=== PATIENT | female | born 1935 | race Two or more races ===

== ENCOUNTER 2018-06-14 17:11 | Emergency (ER) | payer OTHER ==
[2018-06-14 17:29] VITALS: BP 123/67; PULSE 82; TEMP 97; BMI 21.4
--- NOTE | 2018-06-14 17:40 | PDOC ---
History of Present Illness - General Chief Complaint: Lightheaded Stated Complaint: HEADACHE,DIZZINESS, BLURRY VISION Time Seen by Provider: 06/14/18 17:28 History Source: Patient - History of Present Illness Initial Comments: 06/14/18 17:53 Patient is an 83 year old female with a PMH of HTN, NIDDM,HLD and cataracts who presents to our ED c/o 1 week h/o chest pain and headache. Chest pain is 10/10 , diffuse, constant, not related to movement or breathing and does not radiate anywhere. Headache is global without visual or mental status changes, relieved with PO Motrin. Patient also notes blurry vision which is chronic. Daughter @ bedside notes patient is scheduled for cataract surgery. Previous evaluation by cardiology, however no known stress testing. No known family cardiac history. Allergy: Anti-histamines Surgical: denies Social: denies toxic habits PMD: Dr. Michelet Phelps As per EMR, patient last evaluated in our ED in 04/2014 for chest pain, lung nodule on CXR/CT scan noted to be sequelae of prior granulamatous disease. Past History - Past Medical History Allergies/Adverse Reactions: Allergies Allergy/AdvReac Type Severity Reaction Status Date / Time Antihistamines - Alkylamine Allergy Verified 06/14/18 17:29 Home Medications: Ambulatory Orders Amlodipine Besylate [Norvasc -] 5 mg PO DAILY 04/20/14 Aspirin [ASA -] 81 mg PO DAILY 04/20/14 Alendronate Sodium [Binosto] 70 mg PO DAILY 06/14/18 Glipizide [Glipizide ER] 5 mg PO DAILY 06/14/18 Losartan Potassium 100 mg PO DAILY 06/14/18 Simvastatin [Zocor -] 20 mg PO HS 06/14/18 COPD: No Diabetes: Yes HTN: Yes Hypercholesterolemia: Yes - Suicide/Smoking/Psychosocial Hx Smoking History: Former smoker Have you smoked in the past 12 months: No If you are a former smoker, when did you quit?: 15 YEARS AGO Information on smoking cessation initiated: No Hx Alcohol Use: No Drug/Substance Use Hx: No Substance Use Type: None Hx Substance Use Treatment: No Review of Systems - Review of Systems Constitutional: No: Chills, Fever HEENTM: Yes: Blurred Vision. No: Double Vision Respiratory: Yes: Cough, Shortness of Breath Cardiac (ROS): Yes: Chest Pain, Lightheadedness. No: Palpitations, Syncope ABD/GI: No: Constipated, Diarrhea, Nausea, Vomiting : No: Burning, Dysuria *Physical Exam - Vital Signs Last Vital Signs Temp Pulse Resp BP Pulse Ox 97 F L 82 18 123/67 98 06/14/18 17:26 06/14/18 17:26 06/14/18 17:26 06/14/18 17:26 06/14/18 17:26 - Physical Exam General Appearance: Yes: Nourished, Appropriately Dressed HEENT: positive: Normal Voice, Hearing Grossly Normal, Other (Snellen: B/L 20/30 ) Neck: positive: Trachea midline, Supple Respiratory/Chest: positive: Lungs Clear, Normal Breath Sounds. negative: Labored Respiration, Rapid RR, Crackles, Wheezing Cardiovascular: positive: S1, S2 Gastrointestinal/Abdominal: positive: Normal Bowel Sounds, Soft. negative: Distended, Guarding, Rebound, Tenderness Musculoskeletal: negative: CVA Tenderness (R), CVA Tenderness (L) Extremity: positive: Normal Capillary Refill, Normal Inspection Heart Score/ECG Review - History History: Slightly suspicious - Electrocardiogram EKG: Normal - Age Age: >/= 65 - Risk Factors Risk Factors Heart Score: Yes Hx Hypercholesterolemia, Yes Hx Hypertension, Yes Hx Diabetes Based on the list above the patient has:: >/=3 risk factors or Hx atherosclerotic disease - ECG Intrepretation Rhythm: Regular Rhythm - Allen Allen: Normal - ST and T Early Repolarization: No Non Specific ST-T Wave changes: No - ECG Impressions Normal ECG: Yes ED Treatment Course - LABORATORY CBC & Chemistry Diagram: 06/14/18 18:15 06/14/18 18:15 Medical Decision Making - Medical Decision Making 06/14/18 18:22 83 year old female with chest pain and headache. VS unremarkable. Frontal diagnosis: r/o ACS, chostochondritis, less likely PNA, bronchospasm, very low clinical suspicion for aortic dissection, CVA (no focal neurologic deficits on PE) Will obtain CBC, CMP, Troponin x2, EKG, CXR. Reassess. 06/14/18 18:45 Fingerstick BS 164 ECG non-ischemic as documented in ECG section of EMR. C/w previous ECG. 06/14/18 18:59 CXR shows possible L calcified nodule c/w previous CXR - as per EMR, previous w/ u in 04/2014. Troponin (-) x1 Repeat Troponin @ 3 hour casper. Likely disposition home. Patient signed out to Dr. Perla (Resident) and Dr. Elam (Attending). *DC/Admit/Observation/Transfer Diagnosis at time of Disposition: Chest pain - Discharge Dispostion Disposition: HOME - Referrals Referrals: Michelet Phelps MD [Non Staff, Medical] - - Patient Instructions - Post Discharge Activity
[2018-06-14] MEDS ORDERED: SODIUM CHLORIDE 0.9% 500 ML INFUS.BAG IV ONE (18:08)
--- NOTE | 2018-06-14 18:09 | PDOC ---
Attending Attestation - HPI HPI: 06/14/18 18:45 The patient is a 83 year old female, with a significant past medical history of NIDDM, hypertension hyperlipidemia, who presents to the emergency department with one week complaint of constant, non radiating chest pain, and lightheadedness. The patient denies shortness of breath, headache. The patient denies fever, chills, nausea, vomit, diarrhea and constipation. The patient denies dysuria, frequency, urgency and hematuria. Allergies: NKDA - Medical Decision Making 06/14/18 18:45 Documentation prepared by Marguerite Apple, acting as medical office receptionist for Jayshree Elam MD <Marguerite Apple - Last Filed: 06/14/18 18:45> - Resident Resident Name: Elizabeth Huynh - ED Attending Attestation I have performed the following: I have examined & evaluated the patient, The case was reviewed & discussed with the resident, I agree w/resident's findings & plan, Exceptions are as noted - HPI HPI: 06/14/18 18:08 83 yo female p/w a week of lightheadeness and constant nonradiating chest pain . PMH of NIDDM 06/14/18 18:09 - Physicial Exam PE: 06/14/18 18:10 wnwd 83 yo female with constant chest pain and lightheadedness,she states she has blurry vision head ncat eyes doris eomi(vision acuity L 20/30 R 20/40, no diplopia neck supple lungs cta b/l cvs [id number] abd nontender ext moving all extremities skin warma nd dry neuro alert and conversant - Medical Decision Making 06/14/18 18:13 good visual acuity stable VS, no fever,normotensive ekg is nsr, no ischemia 06/14/18 23:00 both troponins are negative pt states she had a ct scan head on May 19 this month and it was negative , she refuses another imp atypical chest pain vertigo 06/14/18 23:09 pt states she had had a h/o vertigo and has taken meclizine in the past. Today she did not take any meclizine prior to arrival <Jayshree Elam - Last Filed: 06/14/18 23:11>
[2018-06-14 18:26] LABS: BASO % 0.6 % (0-2.0); HEMATOCRIT 43.2 % (32.4-45.2); HEMOGLOBIN 14.9 GM/dL (10.7-15.3); LYMPH % 46.1 % (8-40); MCH 30.2 pg (25.7-33.7); MCHC 34.5 g/dl (32.0-36.0); MEAN CELL VOLUME 87.5 fl (80-96); MEAN PLT VOLUME 8.5 fl (7.5-11.1); MONO % 8.2 % (3.8-10.2); NEUT % 42.1 % (42.8-82.8); PLATELET COUNT 261 K/MM3 (134-434); RBC 4.94 M/mm3 (3.60-5.2); RDW 14.2 % (11.6-15.6); WHITE BLOOD COUNT 8.5 K/mm3 (4.0-10.0)
[2018-06-14 18:56] LABS: ALBUMIN 3.9 g/dl (3.4-5.0); ALK PHOS 70 U/L (45-117); ANION GAP 12 MMOL/L (8-16); BILIRUBIN,TOTAL 0.4 mg/dL (0.2-1); BLOOD UREA NITROGEN 15 mg/dL (7-18); CALCIUM 9.7 mg/dL (8.5-10.1); CHLORIDE 102 mmol/L (98-107); CO2 25 mmol/L (21-32); GLUCOSE,RANDOM 154 mg/dL (74-106); N-TERMINAL BNP 11.9 pg/ml (5-450); SGPT/ALT 29 U/L (13-61); SODIUM 139 mmol/L (136-145); TOT PROT 7.9 g/dl (6.4-8.2)
[2018-06-14 18:57] LABS: MAGNESIUM 1.7 mg/dL (1.8-2.4); POTASSIUM 4.6 mmol/L (3.5-5.1); SGOT/AST 32 U/L (15-37)
--- NOTE | 2018-06-14 19:22 | PDOC ---
*Physical Exam - Vital Signs Last Vital Signs Temp Pulse Resp BP Pulse Ox 97 F L 82 18 123/67 98 06/14/18 17:26 06/14/18 17:26 06/14/18 17:26 06/14/18 17:26 06/14/18 17:26 - Physical Exam Comments: 06/14/18 19:58 GENERAL: Awake, alert, and fully oriented, in no acute distress HEAD: No signs of trauma, normocephalic, atraumatic EYES: PERRLA, EOMI, sclera anicteric, conjunctiva clear ENT: Hearing grossly normal, nares patent, oropharynx clear without exudates. Moist mucosa NECK: Normal ROM, supple, no lymphadenopathy, JVD, or masses LUNGS: No distress, speaks full sentences, clear to auscultation bilaterally HEART: Regular rate and rhythm, normal S1 and S2, no murmurs, rubs or gallops, peripheral pulses normal and equal bilaterally. EXTREMITIES : Normal inspection, Normal range of motion, no edema. No clubbing or cyanosis. SKIN: Warm, Dry, normal turgor, no rashes or lesions noted ED Treatment Course - LABORATORY CBC & Chemistry Diagram: 06/14/18 18:15 06/14/18 18:15 - ADDITIONAL ORDERS Additional order review: Laboratory Results 06/14/18 06/14/18 18:15 18:05 Sodium 139 Potassium 4.6 Chloride 102 Carbon Dioxide 25 Anion Gap 12 BUN 15 Creatinine 1.0 Creat Clearance w eGFR 53.08 POC Glucometer 164.53978 Random Glucose 154 H Calcium 9.7 Magnesium 1.7 L Total Bilirubin 0.4 AST 32 ALT 29 Alkaline Phosphatase 70 Creatine Kinase 130 Troponin I < 0.02 B-Natriuretic Peptide 11.9 Total Protein 7.9 Albumin 3.9 06/14/18 06/14/18 18:15 18:05 RBC 4.94 MCV 87.5 MCHC 34.5 RDW 14.2 MPV 8.5 Neutrophils % 42.1 L Lymphocytes % 46.1 H D Monocytes % 8.2 Eosinophils % 3.0 D Basophils % 0.6 POC Glucometer 164.68170 - Medications Given in the ED: ED Medications Discontinued Medications Generic Name Dose Route Start Last Admin Trade Name Freq PRN Reason Stop Dose Admin Sodium Chloride 500 ml 06/14/18 18:08 06/14/18 18:17 Normal Saline - IV 06/14/18 18:09 500 ml ONCE ONE Administration Medical Decision Making - Medical Decision Making 06/14/18 19:56 Received sign out from Dr. Huynh. 83 yo F with h/o ALCANTARA's, HTN, NIDDM, HLD, cataracts who p/w 1 week h/o diffuse chest pain. No other asx. complaints. Denies SOB, cough, PND, orthopnea, leg pain/swelling, wheezing, N/V, lightheadedness. VSS, AF. ACS/ND r/o. PNA r/o. Low suspicion AAA, Ao dissection.EKG with NSR, absent CLIFTON, STD, or Q waves. Normal interval duration and axis. CXR with left calcified nodule as seen on previous CXR. Initial CBC,CMP, Trop: Neg. Repeat trop. If trop neg stable for d/ c. ED Course: 06/14/18 22:13 Repeat trop neg Patient stable for d/c with return precautions. Advised to f/u with PMD. 06/14/18 22:51 Patient refused CTH. Stable for d/c. CTH 05/19: Unremarkable *DC/Admit/Observation/Transfer Diagnosis at time of Disposition: Chest pain Qualifiers: Chest pain type: unspecified Qualified Code(s): R07.9 - Chest pain, unspecified - Discharge Dispostion Disposition: HOME - Referrals Referrals: Michelet Phelps MD [Non Staff, Medical] - Sarabjit Ling MD [Staff Physician] - - Patient Instructions Printed Discharge Instructions: DI for Atypical Chest Pain Additional Instructions: Please return to the emergency department with any new or worsening symptoms or concerns. Please follow up with your primary care physician within 72 hours. Please follow up with cardiology within one week. - Post Discharge Activity - Attestations Physician Attestion: 06/14/18 20:05 I attest to the information provided in this note.
[2018-06-14] MEDS ORDERED: ACETAMINOPHEN 1000 MG/100 ML VIAL (NON FORMULARY) IVPB ONE (19:23)
[2018-06-14] MEDS ORDERED: ACETAMINOPHEN INJECTION 100 ML IVPB ONE (19:42)
[2018-06-14] MEDS ORDERED: MECLIZINE HCL 25 MG TABLET (FP) PO ONE (22:18)
[2018-06-14] MEDS ORDERED: MECLIZINE HCL 25 MG TABLET (FP) ONE (22:19)
--- NOTE | 2018-06-16 10:47 | EKG ---
Test Reason : Blood Pressure : / mmHG Vent. Rate : 079 BPM Atrial Rate : 079 BPM P-R Int : 178 ms QRS Dur : 068 ms QT Int : 370 ms P-R-T Axes : 074 -13 074 degrees QTc Int : 424 ms NORMAL SINUS RHYTHM POSSIBLE INFERIOR INFARCT (CITED ON OR BEFORE 20-APR-2014) ABNORMAL ECG Confirmed by Rich Huang MD ([id number]) on 06/16/2018 10:47:16 AM Referred By: Confirmed By:Rich Huang MD
== END 2018-06-14 23:10 | disposition home or self-care (01) ==
LOC: JER 17:11
PROC: 3E033NZ Introduction of Analgesics, Hypnotics, Sedatives into Peripheral Vein, Percutaneous Approach (ICD-10-PCS; principal; 2018-06-14)
DX: R07.9 Chest pain, unspecified (principal); E78.5 Hyperlipidemia, unspecified; E11.9 Type 2 diabetes mellitus without complications; Z79.84 Long term (current) use of oral hypoglycemic drugs; H26.9 Unspecified cataract
CPT/HCPCS: 36415; 71045-TC-FY; 80053; 82550; 82962; 83735; 83880; 84484; 85025; 93005; 93010; 96374; 99283-25; J0131

== ENCOUNTER 2020-03-08 16:28 | Observation (INO) | payer OTHER ==
[2020-03-08 16:47] VITALS: BMI 23.6
[2020-03-08 17:18] LABS: BASO % 0.5 % (0-2.0); EOS % 0.3 % (0-4.5); HEMATOCRIT 49.2 % (32.4-45.2); HEMOGLOBIN 16.5 GM/dL (10.7-15.3); LYMPH % 13.5 % (8-40); MCH 30.5 pg (25.7-33.7); MCHC 33.5 g/dl (32.0-36.0); MEAN PLT VOLUME 8.5 fl (7.5-11.1); MONO % 6.3 % (3.8-10.2); NEUT % 79.4 % (42.8-82.8); PLATELET COUNT 294 K/MM3 (134-434); RBC 5.41 M/mm3 (3.60-5.2); RDW 15.1 % (11.6-15.6); WHITE BLOOD COUNT 16.8 K/mm3 (4.0-10.0)
[2020-03-08] MEDS ORDERED: SODIUM CHLORIDE 500 ML IV STA (17:36)
--- NOTE | 2020-03-08 17:43 | PDOC ---
Documentation entered by Lyric Reich SCRIBE, acting as scribe for Octavia Roman MD. Octavia Roman MD: This documentation has been prepared by the Benny christensen Nirvannie, SCRIBE, under my direction and personally reviewed by me in its entirety. I confirm that the documentation accurately reflects all work, treatment, procedures, and medical decision making performed by me. Attending Attestation - Resident Resident Name: RuRennyjenn - ED Attending Attestation I have performed the following: I have examined & evaluated the patient, The case was reviewed & discussed with the resident, I agree w/resident's findings & plan, Exceptions are as noted - HPI HPI: 03/08/20 18:00 84 yo F with h/o htn hld here with c/o chest pain. states she has been having intermitent chest pain for weeks. sometimes gets associated nausea. also describes palpitations, and racing heart beats. does have sob. gets at rest and with exertion. no current leg swelling. did just lose her daughter to covid few months ago, and under much stress recently. no h/o prior cardiac workup per patient. - Physicial Exam PE: 03/08/20 18:02 Awake alert no acute distress lungs are clear bilaterally heart is regular murmurs rubs or gallops abdomen soft nontender extremities are warm well perfused no noted peripheral edema no calf tenderness 2+ DP PT pulses bilaterally patient is awake alert and oriented x3 - Medical Decision Making 03/08/20 18:03 84-year-old female history of hyperlipidemia hypertension here today complaining of chest pain does have a recent stress of her daughter's . Differential includes angina infection such as COVID or other pneumonia DC plan EKG chest x- ray troponin due to patient's risk factors we will likely admit to telemetry for monitoring will obtain COVID test to rule out due to her recent exposure and due to procedures for admission 03/08/20 21:05 pt labs normal ekg unremarkable. except q waves III and AVF. left axis. rate 84 bpm. given asa. will admit due to high heart score, high risk factors htn hld and dm. Heart Score/ECG Review #1 General ECG Interpretation: Sinus Rhythm, Normal Rate (84), Normal Intervals Compared to previous ECG there are: Previous ECG unavail (Q wave III, AVF. left axis. rate 84 bpm) Discharge - Discharge Information Problems reviewed: Yes Clinical Impression/Diagnosis: Chest pain Condition: Stable - Follow up/Referral - Patient Discharge Instructions - Post Discharge Activity
[2020-03-08 17:52] LABS: ALBUMIN 4.1 g/dl (3.4-5.0); ALK PHOS 59 U/L (45-117); ANION GAP 9 MMOL/L (8-16); BILIRUBIN,TOTAL 0.5 mg/dL (0.2-1); BLOOD UREA NITROGEN 20.6 mg/dL (7-18); CALCIUM 9.5 mg/dL (8.5-10.1); CHLORIDE 101 mmol/L (98-107); CO2 27 mmol/L (21-32); CREATININE 0.8 mg/dL (0.55-1.3); GLUCOSE,RANDOM 102 mg/dL (74-106); MAGNESIUM 2.1 mg/dL (1.8-2.4); POTASSIUM 4.3 mmol/L (3.5-5.1); SGOT/AST 26 U/L (15-37); SGPT/ALT 29 U/L (13-61); SODIUM 137 mmol/L (136-145); TOT PROT 7.8 g/dl (6.4-8.2)
[2020-03-08] MEDS ORDERED: ASPIRIN 81 MG CHEWABLE TABLETS PO ONE (18:04)
--- NOTE | 2020-03-08 18:11 | PDOC ---
History of Present Illness - General Chief Complaint: Chest Pain Stated Complaint: CP Time Seen by Provider: 03/08/20 16:57 - History of Present Illness Initial Comments: 03/08/20 17:40 HPI: 84 y/o F with hx of NIDDM, HTN, HLD presenting with chest pain x2 weeks of intermittent chest pain. Pain was random and had no pattern. Chest pain was left or right sided without radiation and 8/10; described as a pressure in her chest. The pain is unchanged in nature however today she also reported LH and nausea with emesis and a sensation of feeling flushed. She denies previous similar symptoms. She denies fever, ALCANTARA, SOB, palpitations, abd pain, dysuria, sycnope, LOC. PMHx: as noted above ROS: as noted SHx: Denies tobacco use; no alcohol use; no rec drugs Allergies: NKDA ROS: GENERAL/CONSTITUTIONAL: No fever or chills. No weakness. HEAD, EYES, EARS, NOSE AND THROAT: No change in vision. No ear pain or discharge. No sore throat. CARDIOVASCULAR: +chest pain; no shortness of breath RESPIRATORY: No cough, wheezing, or hemoptysis. GASTROINTESTINAL: +nausea, vomiting; no diarrhea or constipation. GENITOURINARY: No dysuria, frequency, or change in urination. MUSCULOSKELETAL: No joint or muscle swelling or pain. No neck or back pain. SKIN: No rash NEUROLOGIC: No headache, vertigo, loss of consciousness, or change in streng th/sensation. ENDOCRINE: No increased thirst. No abnormal weight change HEMATOLOGIC/LYMPHATIC: No anemia, easy bleeding, or history of blood clots. ALLERGIC/IMMUNOLOGIC: No hives or skin allergy. PE: GENERAL: Awake, alert, and fully oriented, no acute distress HEAD: No signs of trauma, normocephalic, atraumatic EYES: EOMI, sclera anicteric, conjunctiva clear ENT: Auricles normal inspection, hearing grossly normal, nares patent, oropharynx clear without exudates. Moist mucosa NECK: Normal ROM, no lymphadenopathy LUNGS: No increased work of breathing, symmetrical chest rise, clear to auscult ation bilaterally, no wheezes, crackles or rhonchi HEART: Regular rate, regular rhythm, normal S1 and S2, no murmur, peripheral pulses 2+ and equal bilaterally. ABDOMEN: Soft, nondistended, nontender. No guarding, no rebound. No masses. No CVAT MUSCULOSKELETAL: FROM NEUROLOGICAL: Cranial nerves II through XII grossly intact. Normal speech, no focal sensorimotor deficits SKIN: Warm, Dry, normal turgor, no rashes or lesions noted Past History - Medical History Allergies/Adverse Reactions: Allergies Allergy/AdvReac Type Severity Reaction Status Date / Time Antihistamines - Alkylamine Allergy Verified 03/08/20 16:36 Home Medications: Ambulatory Orders Amlodipine Besylate [Norvasc -] 5 mg PO DAILY 04/20/14 Aspirin [ASA -] 81 mg PO DAILY 04/20/14 Alendronate Sodium [Binosto] 70 mg PO DAILY 06/14/18 Glipizide [Glipizide ER] 5 mg PO DAILY 06/14/18 Losartan Potassium 100 mg PO DAILY 06/14/18 Simvastatin [Zocor -] 20 mg PO HS 06/14/18 COPD: No Diabetes: Yes HTN: Yes Hypercholesterolemia: Yes - Psycho-Social/Smoking History Smoking History: Never smoked Have you smoked in the past 12 months: No If you are a former smoker, when did you quit?: 15 YEARS AGO Information on smoking cessation initiated: No - Substance Abuse Hx (Audit-C & DAST Scrn) How often the patient has a drink containing alcohol: Never Score: In Men: 4 or > Positive; In Women: 3 or > Positive: 0 Screen Result (Pos requires Nsg. Audit-10AR): Negative In the last yr the pt used illegal drug/Rx for NonMed reason: No Score: Yes response is considered Positive: 0 Screen Result (Positive result requires Nsg. DAST-10): Negative *Physical Exam - Vital Signs Last Vital Signs Temp Pulse Resp BP Pulse Ox 98.3 F 90 20 145/80 97 03/08/20 16:43 03/08/20 16:43 03/08/20 16:43 03/08/20 16:43 03/08/20 16:43 Heart Score/ECG Review - History History: Moderately suspicious - Electrocardiogram EKG: Non specific repolarization disturbance - Age Age: >/= 65 - Risk Factors Risk Factors Heart Score: Yes Hx Hypercholesterolemia, Yes Hx Hypertension, Yes Hx Diabetes Based on the list above the patient has:: >/=3 risk factors or Hx atheros clerotic disease - Troponin Troponin: </= normal limit - Score Heart Score - Total: 6 - ECG Intrepretation Rhythm: Regular Rhythm ED Treatment Course - LABORATORY CBC & Chemistry Diagram: 03/08/20 17:00 03/08/20 17:00 - ADDITIONAL ORDERS Additional order review: 03/08/20 17:00 RBC 5.41 H MCV 91.0 MCHC 33.5 RDW 15.1 MPV 8.5 Neutrophils % 79.4 D Lymphocytes % 13.5 D Monocytes % 6.3 Eosinophils % 0.3 D Basophils % 0.5 Medical Decision Making - Medical Decision Making 03/08/20 18:50 84 y/o F with hx of NIDDM, HTN, HLD presenting with chest pain x2 weeks of intermittent chest pain now with LH, nausea and emesis. VSS, AF. PE unremarkable -cbc, cmp, card prof, coags, mg, ekg, cxr 03/08/20 18:54 labs wnl ekg nsr with no romi/d, q waved in leads 3 and avf HEART score 6 will admit for acs workup of note, granddaughter states she was supposed to see cabin service agent 2 weeks ago but wasnt able to get in for insruance issues will admit to tele for further workup 03/08/20 18:56 signed out to night team to followup admission Discharge - Discharge Information Problems reviewed: Yes Clinical Impression/Diagnosis: Chest pain Condition: Stable - Admission Yes - Follow up/Referral - Patient Discharge Instructions - Post Discharge Activity
[2020-03-08 18:19] LABS: INR 1.02 (0.83-1.09)
[2020-03-08 18:21] LABS: ACTIVATED PTT 27.8 SECONDS (25.2-36.5)
[2020-03-08] MEDS ORDERED: ASPIRIN COATED 81 MG TABLET.EC ONE (18:27)
--- NOTE | 2020-03-08 19:44 | PN ---
Teaching Attending Note Name of Resident: Noemi Franklin ATTENDING PHYSICIAN STATEMENT I saw and evaluated the patient. I reviewed the resident's note and discussed the case with the resident. I agree with the resident's findings and plan as documented. SUBJECTIVE: Patient 84 year old woman with a PMH of NIDDM, HTN and HLD presenting with two weeks of intermittent chest pain. Pain was random and had no pattern. Chest pain was left or right sided without radiation and 8/10; described as a pressure in her chest. The pain is unchanged in nature however today she also reported lightheadedness and nausea with emesis and a sensation of feeling flushed. Describes palpitations and racing heart beats. Also has SOB at rest and with exertion. Has been under stress lately following loss of her daughter to COVID- 19 infection. She denies previous similar symptoms. Patient denies fever, headache, palpitations, abdominal pain, dysuria, sycnope or diarrhea. Denies alcohol, tobacco or illicit drug use. No sick contacts or recent travels. Family history is unremarkable. OBJECTIVE: Alert Vital Signs Period Temp Pulse Resp BP Sys/Dewitt Pulse Ox Last 24 Hr 98.1 F-98.3 F 78-90 20-20 137-145/74-80 97-99 HEENT: No Jaundice, eye redness or discharge, PERRLA, EOMI. Normocephalic, atraumatic. External ears are normal and hearing is grossly intact. No nasal discharge. Neck: Supple, nontender. No palpable adenopathy or thyromegaly. No JVD Chest: Good effort. Clear to auscultation and percussion. Heart: Regular. No S3, rub or murmur Abdomen: Not distended, soft, nontender and no HSM. No rebound or guarding. Normal bowel sounds. Ext: Peripheral pulses intact. No leg edema. Skin: Warm and dry. No petechiae, rash or ecchymosis. Neuro: Alert. Oriented x3. CN 2-12 grossly intact. Sensation grossly intact in all four extremities and DTR are symmetric. Psych: Appropriate mood and affect. Good insight. Home Medications Medication Instructions Recorded Amlodipine Besylate [Norvasc -] 5 mg PO DAILY 04/20/14 Aspirin [ASA -] 81 mg PO DAILY 04/20/14 Alendronate Sodium [Binosto] 70 mg PO DAILY 06/14/18 Glipizide [Glipizide ER] 5 mg PO DAILY 06/14/18 Losartan Potassium 100 mg PO DAILY 06/14/18 Simvastatin [Zocor -] 20 mg PO HS 06/14/18 Abnormal Lab Results 03/08/20 03/08/20 17:00 17:00 WBC 16.8 H RBC 5.41 H Hgb 16.5 H Hct 49.2 H Absolute Neuts (auto) 13.4 H BUN 20.6 H ASSESSMENT AND PLAN: 1. Chest pain - Has risk factors for ACS. Got ASA 324 mg in the ER. No acute abnormality on CXR. Leukocytosis is a concern. Will get a chest CT stat, blood cultures and urinalysis. EKG shows NSR at 84/minute, q waves in III and aVF, QTc [address]-T wave changes. Initial troponin is negative. Will admit to telemetry, trend troponin, get ECHO, TSH, fasting lipids and consult Cardiology. Erythrocytosis and elevated BUN may signal dehydration - will hydrate gently. Viral testing for COVID-19 ordered and patient placed on airborne, droplet and contact isolation. Will continue comprehensive care for all of patients comorbid conditions. 2. DM For now, we will hold the home diabetes drugs and implement sliding scale insulin regimen. Provide comprehensive diabetes care with patient teaching and counseling about the importance of adherence to prescribed diabetes regimen, euglycemia, eye care and foot care. 3. Hypertension Will restart suitable outpatient antihypertensive drugs when clinically appropriate. Subsequently, will revise regimen to ensure [id number] excellent BP control. Patient counseled on the injurious effects of uncontrolled hypertension. Nonpharmacologic measures to control h ypertension like weight loss, salt restriction and exercise stressed. Importance of adherence to treatment regimen and attainment of normotension emphasized. 4. DVT prophylaxis - Lovenox 40 mg SQ q 24 hours. 5. Advance directives - Full code
--- NOTE | 2020-03-08 20:59 | HP ---
CHIEF COMPLAINT: Chest Pain PCP: Dr. Kelvin Everett HISTORY OF PRESENT ILLNESS: 84 y/o F PMHx NIDDm, HTN, HLD presents with chest pain, Lightheadedness, nausea and vomiting. Patient is primarily burundian speaking thus a [employer] interpretor was used (Kadie [id number]). Patient says she has had chest pain for the past 3 weeks. She describes as a pressure that comes and goes, at worst is 8/10, nonreproducible, nonradiating that can occur on either the left or right side of her chest and has prevented her from sleeping. This morning she woke without any symptoms however this afternoon, she had sudden onset of dizziness, nausea, and one episode of NBNB Vomiting. After vomiting, she phoned her daughter who al tered EMS and patient was brought to the hospital. She is unable to identify any triggers for the chest pain but mentions that it always occurs at rest and is sometimes accompanied by palpitatoins. Additionally, it is worse with laying on her side. She mentions that hot tea has helped but the pain usually lasts from 8-10 minutes. During my interview, patient is pain free and Denies any fevers, chills, SOB, diarrhea, constipation, dysuria, Headache. Of note, The only thing she consumed today was coffee with milk. ER course was notable for: (1) NS 1/2L (2) ASA 324mg (3) Recent Travel: Denies PAST MEDICAL HISTORY: As per HPI PAST SURGICAL HISTORY: Cervix surgery Social History: Smoking: Denies Alcohol: Denies Drugs: Denies Occupation: Housewife Ambulation: Without assistance Residence: With daughter, son in law and grandson Allergies Antihistamines - Alkylamine Allergy (Verified 03/08/20 16:36) HOME MEDICATIONS: Home Medications Medication Instructions Recorded Amlodipine Besylate [Norvasc -] 5 mg PO DAILY 04/20/14 Aspirin [ASA -] 81 mg PO DAILY 04/20/14 Alendronate Sodium [Binosto] 70 mg PO DAILY 06/14/18 Glipizide [Glipizide ER] 5 mg PO DAILY 06/14/18 Losartan Potassium 100 mg PO DAILY 06/14/18 Simvastatin [Zocor -] 20 mg PO HS 06/14/18 REVIEW OF SYSTEMS As per HPI PHYSICAL EXAMINATION Vital Signs - 24 hr 03/08/20 03/08/2003/08/20 16:43 16:47 19:06 Temperature 98.3 F 98.1 F Pulse Rate 90 Pulse Rate [ 78 Apical] Respiratory 20 20 Rate Blood Pressure 145/80 Blood Pressure 137/74 [Left Arm] O2 Sat by Pulse 97 98 99 Oximetry (%) GENERAL: A&Ox3, NAD HEAD: NCAT EYES: PERRL, EOMI ENT: Oropharynx clear without exudates. Moist mucous membranes. NECK: No JVD LUNGS: CTAB, No wheezes, no crackles HEART: Regular rate and rhythm, normal S1 and S2 without murmur ABDOMEN: Soft, nontender, not distended, + bowel sounds, no guarding, no rebound EXTREMITIES: No peripheral edema. NEUROLOGICAL: Cranial nerves II-XII intact. SKIN: Warm, dry Laboratory Results - last 24 hr 03/08/20 03/08/20 03/08/20 17:00 17:00 17:34 WBC 16.8 H RBC 5.41 H Hgb 16.5 H Hct 49.2 H MCV 91.0 MCH 30.5 MCHC 33.5 RDW 15.1 Plt Count 294 MPV 8.5 Absolute Neuts (auto) 13.4 H Neutrophils % 79.4 D Lymphocytes % 13.5 D Monocytes % 6.3 Eosinophils % 0.3 D Basophils % 0.5 Nucleated RBC % 0 PT with INR 12.00 INR 1.02 PTT (Actin FS) 27.8 Sodium 137 Potassium 4.3 Chloride 101 Carbon Dioxide 27 Anion Gap 9 BUN 20.6 H Creatinine 0.8 Est GFR (CKD-EPI)AfAm 79.02 Est GFR (CKD-EPI)NonAf 68.18 Random Glucose 102 Calcium 9.5 Magnesium 2.1 Total Bilirubin 0.5 AST 26 ALT 29 Alkaline Phosphatase 59 Creatine Kinase 62 Troponin I < 0.02 Total Protein 7.8 Albumin 4.1 ASSESSMENT/PLAN: 84 y/o F PMHx NIDDm, HTN, HLD presents with chest pain, Lightheadedness, nausea and vomiting. #Chest Pain -Unclear Etiology but does not seem cardiac in nature -Trop < 0.01, Trend -EKG: NSR, No ST Segment changes, q waves in III and aVF, VR 84 QTc 432 -Check TSH, Lipid Panel, A1c, Echo, CT Chest -Tele -Daily ASA #Leukocytosis -Afebrile, CXR without acute pathology -Check UA, Blood Cx, Chest CT, Covid19 Swab pending #Erythrocytosis -Possibly due to dehydraiton in the setting of elevated BUN -IV Hydration #DM -BGMs ISS ACHS #FEN -No standing fluids -Replete lytes PRN -Keep NPO for possible stress test #PPx -DVT: Lovenox Dispo: Tele/Obs Visit type - Emergency Visit Emergency Visit: Yes ED Registration Date: 03/08/20 Care time: The patient presented to the Emergency Department on the above date and was hospitalized for further evaluation of their emergent condition. - New Patient This patient is new to me today: Yes Date on this admission: 03/09/20 - Critical Care Critical Care patient: No ATTENDING PHYSICIAN STATEMENT I saw and evaluated the patient. I reviewed the resident's note and discussed the case with the resident. I agree with the resident's findings and plan as documented. SUBJECTIVE: OBJECTIVE: ASSESSMENT AND PLAN:
[2020-03-08] MEDS ORDERED: SODIUM CHLORIDE 1,000 ML IV SCH (22:30)
[2020-03-09 08:12] LABS: BASO % 0.4 % (0-2.0); HEMATOCRIT 46.7 % (32.4-45.2); HEMOGLOBIN 15.6 GM/dL (10.7-15.3); LYMPH % 37.1 % (8-40); MCHC 33.3 g/dl (32.0-36.0); MEAN CELL VOLUME 90.1 fl (80-96); MEAN PLT VOLUME 8.5 fl (7.5-11.1); MONO % 7.9 % (3.8-10.2); NEUT % 52.6 % (42.8-82.8); PLATELET COUNT 280 K/MM3 (134-434); RBC 5.18 M/mm3 (3.60-5.2); RDW 15.2 % (11.6-15.6); WHITE BLOOD COUNT 9.9 K/mm3 (4.0-10.0)
[2020-03-09 08:26] LABS: ALBUMIN 4.1 g/dl (3.4-5.0); ALK PHOS 64 U/L (45-117); ANION GAP 9 MMOL/L (8-16); BILIRUBIN,TOTAL 0.6 mg/dL (0.2-1); BLOOD UREA NITROGEN 18.7 mg/dL (7-18); CHLORIDE 104 mmol/L (98-107); CHOLESTEROL 194 mg/dL (50-200); CO2 25 mmol/L (21-32); CREATININE 0.7 mg/dL (0.55-1.3); GLUCOSE,RANDOM 116 mg/dL (74-106); HDL CHOLESTEROL 39 mg/dL (40-60); LDL CHOLESTEROL (ONLY SJRH) 127 mg/dL (5-100); MAGNESIUM 2.3 mg/dL (1.8-2.4); PHOSPHOROUS 3.9 mg/dL (2.5-4.9); POTASSIUM 4.3 mmol/L (3.5-5.1); SGOT/AST 21 U/L (15-37); SGPT/ALT 30 U/L (13-61); SODIUM 138 mmol/L (136-145); TOT PROT 7.7 g/dl (6.4-8.2); TRIGLYCERIDES 158 mg/dL (0-150)
[2020-03-09] MEDS: INSULIN SLIDING SCALE (NOVOLOG) 1 VIAL SQ SCH ×2 (08:28→11:05)
[2020-03-09] MEDS ORDERED: ENOXAPARIN NA (PORCINE) 40 MG/0.4 ML DISP.SYRIN SQ SCH (10:00)
[2020-03-09] MEDS ORDERED: PATIENT'S OWN MEDICATION (NON-FORMULARY) (Alendronate Sodium [Binosto] 70 MG) PO SCH (10:00)
[2020-03-09] MEDS ORDERED: amLODIPine BESYLATE 5 MG TABLET (FP) PO SCH (10:00)
[2020-03-09] MEDS ORDERED: FENOFIBRIC ACID 135 MG CAP PO SCH (10:00)
[2020-03-09] MEDS ORDERED: PATIENT'S OWN MEDICATION (NON-FORMULARY) (Fenofibrate [Fenofibrate] 160 MG) PO SCH (10:00)
[2020-03-09] MEDS ORDERED: ASPIRIN 81 MG CHEWABLE TABLETS PO SCH (10:00)
[2020-03-09] MEDS ORDERED: ASPIRIN 81 MG CHEWABLE TABLETS ONE (10:45)
[2020-03-09] MEDS ORDERED: ENOXAPARIN NA (PORCINE) 40 MG/0.4 ML DISP.SYRIN SQ ONE (10:46)
[2020-03-09] MEDS ORDERED: amLODIPine BESYLATE 5 MG TABLET (FP) ONE (10:46)
--- NOTE | 2020-03-09 13:55 | CON.CARD ---
Consult Consult Specialty:: cardiology Referred by:: radha hendricks Reason for Consultation:: chest pain - History of Present Illness Chief Complaint: n/v History of Present Illness: 84 year old female with a pmhx of dm, htn, and hld presenting with dizziness/nauea/vomiting. Patient has noticed some atypical chest pain couple w eeks. Patient is reproducible to touch on chest wall she grimaces to touch. Pain is worse with lying down and on her side. No sob or diaphoresis. No exertional complaints. Yesterday she developed dizziness, nausea, and one episode of vomiting so daughter altered ems. Currently feels well and wants to go home. Some mild chest pain if press on her left side. EKG: sinus rhythm, inferior infarct, no acute st changes (unchanged from old) Trops negative x2 TSH 3.[address] no acute pathology WBC 16 - History Source History Provided By: Patient, Medical Record - Past Medical History Cardio/Vascular: Yes: HTN, Hyperlipdemia - Alcohol/Substance Use Hx Alcohol Use: No - Smoking History Smoking history: Never smoked Have you smoked in the past 12 months: No If you are a former smoker, when did you quit?: 15 YEARS AGO - Social History ADL: Independent History of Recent Travel: No Home Medications - Allergies Allergies/Adverse Reactions: Allergies Allergy/AdvReac Type Severity Reaction Status Date / Time Antihistamines - Alkylamine Allergy Verified 03/08/20 16:36 - Home Medications Home Medications: Ambulatory Orders Amlodipine Besylate [Norvasc -] 10 mg PO DAILY 04/20/14 Aspirin [ASA -] 81 mg PO DAILY 04/20/14 Alendronate Sodium [Binosto] 70 mg PO DAILY 06/14/18 Glipizide [Glipizide ER] 5 mg PO DAILY 06/14/18 Simvastatin [Zocor -] 20 mg PO HS 06/14/18 Fenofibrate 160 mg PO DAILY 03/08/20 Vital Signs: Vital Signs Temperature 98.3 F 03/09/20 06:13 Pulse Rate 90 03/09/20 06:13 Respiratory Rate 16 03/09/20 06:13 Blood Pressure 133/92 03/09/20 06:13 O2 Sat by Pulse Oximetry (%) 97 03/09/20 08:29 Constitutional: Yes: No Distress Neck: Yes: Supple Respiratory: Yes: CTA Bilaterally Gastrointestinal: Yes: Soft Cardiovascular: Yes: Regular Rate and Rhythm JVD: No Carotid Bruit: No Heart Sounds: Yes: S1, S2 Murmur: No: Systolic Murmur Edema: No - Other Data Labs, Other Data: CBC, BMP 03/09/20 06:49 03/09/20 06:49 INR, PTT INR 1.02 (0.83-1.09) 03/08/20 17:34 Troponin, BNP 03/08/20 03/09/20 03/09/20 17:00 06:49 08:30 Troponin I < 0.02 < 0.02 Cancelled Troponin, BNP 03/08/20 03/09/20 03/09/20 17:00 06:49 08:30 Troponin I < 0.02 < 0.02 Cancelled Imaging - Results Chest X-ray: Report Reviewed Cat Scan: Report Reviewed EKG: Image Reviewed Problem List - Problems (1) Chest pain Code(s): R07.9 - CHEST PAIN, UNSPECIFIED Assessment/Plan 84 year old female with a pmhx of dm, htn, and hld presenting with dizziness/nauea/vomiting. Patient has noticed some atypical chest pain couple weeks. Patient is reproducible to touch on chest wall she grimaces to touch. Pain is worse with lying down and on her side. No sob or diaphoresis. No exertional complaints. Yesterday she developed dizziness, nausea, and one episode of vomiting so daughter altered ems. Currently feels well and wants to go home. Some mild chest pain if press on her left side. EKG: sinus rhythm, inferior infarct, no acute st changes (unchanged from old) Trops negative x2 TSH 3.[address] no acute pathology WBC 16 1) Chest pain -symptoms are atypical Trops negative EKG no acute ischemic changes Feels well except some reproducible pain. -Chest CT no acute pathology -S/p IVF's -Would r/o Covid F/u any concern for infection by pmd given WBC 16 which has improved. Echocardiogram today. If echocardiogram unremarkable than can follow up as outpatient with nuclear stress test as an outpatient. Continue aspirin/statin. Follow up with Dr Gaston [phone] Appt: March 21 at 9am, [address] [facility], 1st floor
--- NOTE | 2020-03-09 14:16 | ECHO ---
Name: SOTO, CARMELA Exam:Adult Echocardiogram Study Date: 03/09/2020 09:12 AM Age: 84 yrs Reason For Study: Evaluate LV Fxn Height: 61 in Weight: 125 lb BSA: 1.5 m2 MMode/2D Measurements & Calculations IVSd: 0.89 cm Ao root diam: 2.4 cm LVIDd: 3.0 cm LA dimension: 2.1 cm LVIDs: 2.1 cm ACS: 1.7 cm LVPWd: 0.84 cm EDV(Teich): 34.3 ml LVOT diam: 2.0 cm ESV(Teich): 14.2 ml LAV (MOD-bp): 26.0 ml TAPSE: 1.5 cm RV S Franklin: 23.1 cm/sec Doppler Measurements & Calculations MV E max franklin: 60.3 cm/sec Ao V2 max: 106.7 cm/sec MV A max franklin: 108.6 cm/sec Ao max P.6 mmHg MV E/A: 0.56 Ao V2 mean: 73.0 cm/sec MV dec time: 0.27 sec Ao mean P.5 mmHg Ao V2 VTI: 17.2 cm ANTOINE(I,D): 4.0 cm2 ANTOINE(V,D): 3.2 cm2 LV V1 max P.8 mmHg SV(LVOT): 68.8 ml LV V1 mean P.2 mmHg LV V1 max: 109.7 cm/sec LV V1 mean: 68.7 cm/sec LV V1 VTI: 22.3 cm TR max franklin: 227.9 cm/sec PA V2 max: 108.6 cm/sec TR max P.8 mmHg PA max P.7 mmHg Med Peak E' Franklin: 5.5 cm/sec Med E/e': 11.1 Lat Peak E' Franklin: 5.8 cm/sec Lat E/e': 10.3 Tech Comments Suboptimal PLAX/SAX views due to orientation of patient's heart. Procedure A complete two-dimensional transthoracic echocardiogram was performed (2D, M-mode, Doppler and color flow Doppler). Left Ventricle The left ventricular size, thickness and function are normal. Ejection Fraction = 60-65%. The left ve ntricular wall motion is normal. Right Ventricle The right ventricle is normal in size and function. Atria Normal left and right atrial size and function. Mitral Valve There is no mitral regurgitation noted. Tricuspid Valve There is trace tricuspid regurgitation. Right ventricular systolic pressure is normal. Aortic Valve No hemodynamically significant valvular aortic stenosis. No aortic regurgitation is present. Pulmonic Valve There is no pulmonic valvular regurgitation. Great Vessels The aortic root is normal size. Pericardium/Pleura There is no pericardial effusion. Interpretation Summary The left ventricular size, thickness and function are normal The right ventricle is normal in size and function. There is trace tricuspid regurgitation. MD Xiang Acosta 03/09/2020 02:16 PM
--- NOTE | 2020-03-09 15:37 | PN ---
Teaching Attending Note Name of Resident: Laila Hutchison ATTENDING PHYSICIAN STATEMENT I saw and evaluated the patient. I reviewed the resident's note and discussed the case with the resident. I agree with the resident's findings and plan as documented. SUBJECTIVE: [employer] interpreter deaf used #[id number]. She feels better . she has minimal L sided cp , and palpitations . No N/V . she reports 2-3 weeks of continuous palpitations and intermittent cp . no relation ot exertion . No new meds. no card f/u . No recent echo or stress test. denies SOB. OBJECTIVE: NAd, MMM Cv: RRR, no MRG Lungs: CTAB Abd: soft, NT, Nd , NL BS Ext : No edema or erythema. ASSESSMENT AND PLAN: 84 y/o lady with h/o NIDDM, HTN and HLD presenting with cp x 3 weeks and palpitations . 1- CP : atypical . 2- palpitations 3- hyperlipidemia 4- DM 5- leukocytosis 6- volume depletion plan : EKG with sinus rhythm. trop Nl. TSH on higher normal f/u with card as out pt . possible holter or event monitor repeat TSH as out pt change zocor to lipitor as LDL > goal f/u with PCP cont glipizide after dc leuokocytosis is likely due to voluem depletion . No signs of infection . Hb and WBC trended down after IVF without any Abx . CT with no infection . No dysuria . repeat CBC as out pt tp follow up on HB received IVF . BUN improved dc home
--- NOTE | 2020-03-09 16:36 | DS ---
Physical Exam: SUBJECTIVE: Patient seen and examined at bedside. No acute events overnight. OBJECTIVE: Vital Signs Period Temp Pulse Resp BP Sys/Dewitt Pulse Ox Last 24 Hr 98.1 F-98.7 F 78-90 16-20 119-145/72-92 97-99 PHYSICAL EXAM GENERAL: A&Ox3, NAD HEAD: NCAT EYES: PERRL, EOMI ENT: Oropharynx clear without exudates. Moist mucous membranes. NECK: No JVD LUNGS: CTAB, No wheezes, no crackles HEART: Regular rate and rhythm, normal S1 and S2 without murmur ABDOMEN: Soft, nontender, not distended, + bowel sounds, no guarding, no rebound EXTREMITIES: No peripheral edema. NEUROLOGICAL: Cranial nerves II-XII intact. SKIN: Warm, dry LABS Laboratory Results - last 24 hr 03/08/20 03/08/20 03/08/20 17:00 17:00 17:34 WBC 16.8 H RBC 5.41 H Hgb 16.5 H Hct 49.2 H MCV 91.0 MCH 30.5 MCHC 33.5 RDW 15.1 Plt Count 294 MPV 8.5 Absolute Neuts (auto) 13.4 H Neutrophils % 79.4 D Lymphocytes % 13.5 D Monocytes % 6.3 Eosinophils % 0.3 D Basophils % 0.5 Nucleated RBC % 0 PT with INR 12.00 INR 1.02 PTT (Actin FS) 27.8 Sodium 137 Potassium 4.3 Chloride 101 Carbon Dioxide 27 Anion Gap 9 BUN 20.6 H Creatinine 0.8 Est GFR (CKD-EPI)AfAm 79.02 Est GFR (CKD-EPI)NonAf 68.18 POC Glucometer Random Glucose 102 Calcium 9.5 Phosphorus Magnesium 2.1 Total Bilirubin 0.5 AST 26 ALT 29 Alkaline Phosphatase 59 Creatine Kinase 62 Troponin I < 0.02 Total Protein 7.8 Albumin 4.1 Triglycerides Cholesterol Total LDL Cholesterol HDL Cholesterol TSH 03/09/20 03/09/20 03/09/20 06:49 06:49 07:35 WBC 9.9 RBC 5.18 Hgb 15.6 H Hct 46.7 H MCV 90.1 MCH 30.0 MCHC 33.3 RDW 15.2 Plt Count 280 MPV 8.5 Absolute Neuts (auto) 5.2 Neutrophils % 52.6 D Lymphocytes % 37.1 D Monocytes % 7.9 Eosinophils % 2.0 D Basophils % 0.4 Nucleated RBC % 0 PT with INR INR PTT (Actin FS) Sodium 138 Potassium 4.3 Chloride 104 Carbon Dioxide 25 Anion Gap 9 BUN 18.7 H Creatinine 0.7 Est GFR (CKD-EPI)AfAm 92.86 Est GFR (CKD-EPI)NonAf 80.12 POC Glucometer 137 Random Glucose 116 H Calcium 10.0 Phosphorus 3.9 Magnesium 2.3 Total Bilirubin 0.6 AST 21 ALT 30 Alkaline Phosphatase 64 Creatine Kinase Troponin I < 0.02 Total Protein 7.7 Albumin 4.1 Triglycerides 158 H Cholesterol 194 Total LDL Cholesterol 127 H HDL Cholesterol 39 L TSH 3.96 H 03/09/20 03/09/20 08:30 12:04 WBC RBC Hgb Hct MCV MCH MCHC RDW Plt Count MPV Absolute Neuts (auto) Neutrophils % Lymphocytes % Monocytes % Eosinophils % Basophils % Nucleated RBC % PT with INR INR PTT (Actin FS) Sodium Potassium Chloride Carbon Dioxide Anion Gap BUN Creatinine Est GFR (CKD-EPI)AfAm Est GFR (CKD-EPI)NonAf POC Glucometer 121 Random Glucose Calcium Phosphorus Magnesium Total Bilirubin AST ALT Alkaline Phosphatase Creatine Kinase Troponin I Cancelled Total Protein Albumin Triglycerides Cholesterol Total LDL Cholesterol HDL Cholesterol TSH HOSPITAL COURSE: Date of Admission:03/08/20 84 y/o F PMHx NIDDm, HTN, HLD presents with chest pain, Lightheadedness, nausea and vomiting admitted for r/o ACS. Labs showed WBC, erythrocytosis, elevated TG/LDL, elevated TSH, trop neg x2. Chest CT was neg. He was given IVf, ASA, statin and monitored on tele. Repeat lab work was done that showed normal WBC and resolving Hgb. Echo showed trace TR, otherwise normal. She was evaluated by cardio with recommendation for outpatient nuclear cardiac stress test. During her hospital stay, her symptoms improved. She was advised to start taking ASA, statin and to follow up with her PCP and [facility]. Date of Discharge: 03/09/20 Minutes to complete discharge: 36 Discharge Summary Problems reviewed: Yes Reason For Visit: LIGHTHEADEDNESS,CHEST PAIN Current Active Problems Chest pain (Acute) Condition: Improved - Instructions Diet, Activity, Other Instructions: You were seen in the hospital for complaints of palpitations. You were evaluated by the [facility] with recommendation to follow up as an outpatient. An echocardiogram (ultrasound of the heart) was done that did not show any acute heart condition that would need immediate intervention. You are now stable for discharge. Medications We have made the following changes to your medication regimen: Please STOP taking Zocor. You may START taking Lipitor 10 mg once a night by mouth. You may continue taking the rest of your home medications as prescribed. Follow Up Please follow up with your primary care physician within 1 week. You will need r epeat blood work (CBC, TSH) to check your hemoglobin and your thyroid function . Please follow up with your [facility], Dr. Gaston within 1 week. Your [facility] You may possibly need a holter monitor to assess for any arrhythmias. If you have worsening chest pain, shortness of breath, palpitations, or other associated symptoms, please proceed to your nearest emergency room immediately. Referrals: Kelvin Berman [Other] - 1 Week Jayson Gaston MD [Staff Physician] - 03/21/20 9:00 am Disposition: HOME - Home Medications Comprehensive Discharge Medication List: Ambulatory Orders Amlodipine Besylate [Norvasc -] 10 mg PO DAILY 04/20/14 Aspirin [ASA -] 81 mg PO DAILY 04/20/14 Alendronate Sodium [Binosto] 70 mg PO DAILY 06/14/18 Glipizide [Glipizide ER] 5 mg PO DAILY 06/14/18 Fenofibrate 160 mg PO DAILY 03/08/20 Atorvastatin Ca [Lipitor] 10 mg PO HS #30 tablet 03/09/20 This patient is new to me today: No Emergency Visit: Yes ED Registration Date: 03/08/20 Care time: The patient presented to the Emergency Department on the above date and was hospitalized for further evaluation of their emergent condition. Critical Care patient: No - Discharge Referral Referred to [facility] Med P.C.: No ATTENDING PHYSICIAN STATEMENT I saw and evaluated the patient. I reviewed the resident's note and discussed the case with the resident. I agree with the resident's findings and plan as documented. SUBJECTIVE: OBJECTIVE: ASSESSMENT AND PLAN:
[2020-03-09 17:03] VITALS: BP 145/85; PULSE 79; TEMP 98.1
--- NOTE | 2020-03-09 17:40 | EKG ---
Test Reason : Blood Pressure : / mmHG Vent. 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
[2020-03-09] MEDS ORDERED: ATORVASTATIN CA 10 MG TABLET (FP) PO SCH (22:00)
== END 2020-03-09 17:04 | disposition home or self-care (01) ==
LOC: JER 16:28 → INTOOBSV 18:56 → JERBED 18:56
PROVIDERS: ADMIT Internal Medicine; ATTEND Internal Medicine
PROC: 3E023GC Introduction of Other Therapeutic Substance into Muscle, Percutaneous Approach (ICD-10-PCS; principal; 2020-03-08)
PROC: 3E0337Z Introduction of Electrolytic and Water Balance Substance into Peripheral Vein, Percutaneous Approach (ICD-10-PCS; 2020-03-08)
DX: R07.9 Chest pain, unspecified (principal); I10 Essential (primary) hypertension; E11.9 Type 2 diabetes mellitus without complications; E78.5 Hyperlipidemia, unspecified; F43.9 Reaction to severe stress, unspecified; D72.829 Elevated white blood cell count, unspecified; E86.9 Volume depletion, unspecified; Z87.891 Personal history of nicotine dependence; Z29.9 Encounter for prophylactic measures, unspecified; Z88.8 Allergy status to other drugs, medicaments and biological substances
CPT/HCPCS: 36415; 71045-TC-FY; 71250-TC; 80053; 80061; 82550; 82962; 83721; 83735; 84100; 84443; 84484; 85025; 85610; 85730; 87040; 93005; 93010; 93306-TC; 99285-25; G0378; U0003

== ENCOUNTER 2022-01-23 04:19 | Day surgery (SDC) | payer OTHER ==
[2022-01-18 15:41] VITALS: BMI 19.8
[2022-01-23] MEDS ORDERED: PROMETHAZINE HCL 25 MG/1 ML VIAL IVPUSH PRN (14:12)
[2022-01-23] MEDS ORDERED: ONDANSETRON 4 MG/2 ML VIAL IVPUSH PRN (14:12)
[2022-01-23] MEDS ORDERED: oxyCODONE HCL 5 MG TABLET PO PRN (14:12)
[2022-01-23] MEDS ORDERED: LACTATED RINGERS SOLUTION 1,000 ML IV SCH (14:15)
[2022-01-23] MEDS ORDERED: MIDAZOLAM HCL 2 MG/2 ML SINGLE DOSE VIAL ONE (14:55)
[2022-01-23] MEDS ORDERED: PROPOFOL 20 ML ONE (14:55)
[2022-01-23] MEDS ORDERED: LIDOCAINE HCL/PF 2% SDV 5ML VIAL ONE (14:58)
[2022-01-23] MEDS ORDERED: ceFAZolin SODIUM 1 GM VIAL ONE (15:00)
[2022-01-23] MEDS ORDERED: ceFAZolin SODIUM 1 GM VIAL IVPB ONE (15:03)
[2022-01-23] MEDS ORDERED: DEXAMETHASONE SOD PHOSPHATE 4 MG/1 ML VIAL ONE (15:04)
[2022-01-23] MEDS ORDERED: KETOROLAC TROMETHAMINE 30 MG/1 ML VIAL ONE (15:12)
[2022-01-23] MEDS ORDERED: LIDOCAINE HCL 2% JELLY 10 ML CARTRIDGE ONE (16:44)
[2022-01-23 17:55] VITALS: BP 130/73; PULSE 79; TEMP 97.9
== END 2022-01-23 17:55 | disposition home or self-care (01) ==
LOC: JASU-SURG 04:19
PROVIDERS: ATTEND Urology
PROC: 0TC48ZZ Extirpation of Matter from Left Kidney Pelvis, Via Natural or Artificial Opening Endoscopic (ICD-10-PCS; principal; 2022-01-23 15:00)
PROC: 0T778DZ Dilation of Left Ureter with Intraluminal Device, Via Natural or Artificial Opening Endoscopic (ICD-10-PCS; 2022-01-23 15:00)
DX: N20.0 Calculus of kidney (principal); I10 Essential (primary) hypertension; E11.9 Type 2 diabetes mellitus without complications
CPT/HCPCS: 76000-TC-FY; 94760